=== PATIENT | male | born 1940 | race Asian ===

== ENCOUNTER 2016-12-24 10:23 | Emergency (ER) | payer MEDICARE, OTHER ==
[~2016-12-24] VITALS: Ht 167.6 cm; Wt 63.7 kg
[2016-12-24 10:33] VITALS: BP 96/62
[2016-12-24] MEDS ORDERED: METO200T3 PO (11:06)
[2016-12-24] MEDS ORDERED: CAND16TA12 PO (11:06)
[2016-12-24] MEDS ORDERED: AMLO10TA2 PO (11:06)
[2016-12-24] MEDS ORDERED: ROSU40TA PO (11:06)
[2016-12-24] MEDS ORDERED: ASPI-496 PO (11:07)
[2016-12-24] MEDS ORDERED: VALA1000 PO (11:07)
== END 2016-12-24 12:44 | disposition home or self-care (01) ==
LOC: ED 12:20
DX: B02.29 Other postherpetic nervous system involvement (principal)
CPT/HCPCS: 99283